=== PATIENT | male | born 1975 | race Caucasian/White ===

== ENCOUNTER 2020-01-27 15:19 | Emergency (ER) | payer SELFPAY ==
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
[2020-01-27] MEDS ORDERED: Adacel (T-DAP) 0.5 ML SYRINGE ONE (17:24)
[2020-01-27] MEDS ORDERED: Ketorolac Tromethamine 30 MG/ML VIAL ONE (17:25)
[2020-01-27] MEDS ORDERED: Bupivacaine 0.25% 10 ML VIAL ONE (18:28)
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
== END 2020-01-27 19:34 | disposition home or self-care (01) ==
LOC: ERS 15:19
DX: S06.0X9A Concussion with loss of consciousness of unspecified duration, initial encounter (principal); S01.81XA Laceration without foreign body of other part of head, initial encounter; R41.2 Retrograde amnesia; S93.401A Sprain of unspecified ligament of right ankle, initial encounter; F17.210 Nicotine dependence, cigarettes, uncomplicated; Z23 Encounter for immunization; V47.5XXA Car driver injured in collision with fixed or stationary object in traffic accident, initial encounter
CPT/HCPCS: 70450; 90471; 90715; 96374; J1885; S0020